=== PATIENT | male | born 1960 | race Caucasian/White ===

== ENCOUNTER 2017-05-20 02:33 | Inpatient (IN) | payer MEDICAID, OTHER ==
[~2017-05-20] VITALS: Ht 170.2 cm; Wt 72.6 kg
[2017-05-20] MEDS ORDERED: KETOROLAC 30MG/ML VIAL IV STA (03:48)
[2017-05-20] MEDS ORDERED: SODIUM CHLORIDE 0.9% 1,000 ML IV ONE ×2 (03:48→05:16)
[2017-05-20] MEDS ORDERED: ONDANSETRON HCL 4MG/2ML VIAL IV STA (03:48)
[2017-05-20] MEDS ORDERED: FENTANYL CITRATE/PF 50MCG/ML 2ML VIAL IV ONE (04:30)
[2017-05-20 04:36] LABS: BASOPHILS % 0.5 % (0.0-2.0); EOSINOPHILS % 0.8 % (0.0-5.0); HEMATOCRIT. 46.9 % (42.0-52.0); HEMOGLOBIN. 15.8 g/dL (14.0-18.0); LYMPHOCYTES % 11.5 % (20.0-50.0); MEAN CORPUSCULAR HEMOGLOBIN 30.3 pg (28.0-32.0); MEAN CORPUSCULAR VOLUME 89.7 fL (80.0-94.0); MEAN PLATELET VOLUME 8.9 fl (7.4-10.4); MONOCYTES % 5.5 % (2.0-8.0); NEUTROPHILS % 81.7 % (40.0-76.0); PLATELET 216 x1000/uL (130-400); RED BLOOD CELL COUNT 5.22 mill/uL (4.7-6.1); RED CELL DISTRIBUTION WIDTH 13.9 % (11.6-14.6)
[2017-05-20 04:43] LABS: INR 1.1; PROTHROMBIN TIME 11.5 sec (9.4-11.6)
[2017-05-20 04:53] LABS: CARBON DIOXIDE 23 mEq/L (21-32); CHLORIDE 108 mEq/L (98-107); ETHANOL BLOOD < 10 mg/dL; TROPONIN I < 0.02 ng/mL (0.00-0.04)
[2017-05-20] MEDS ORDERED: MORPHINE SULFATE 4 MG/ML CPJ (NOT FOR IM USE) IV SCH (06:16)
[2017-05-20] MEDS ORDERED: TAMSULOSIN HCL 0.4MG SR CAPSULE PO ONE (06:30)
[2017-05-20 06:46] LABS: CLARITY URINE CLEAR (CLEAR); COLOR URINE YELLOW (YELLOW); GLUCOSE URINE NEGATIVE (NEGATIVE); KETONES URINE 1+ (NEGATIVE); LEUKOCYTE ESTERASE URINE NEGATIVE (NEGATIVE); NITRITE URINE NEGATIVE (NEGATIVE); OCCULT BLOOD URINE 1+ (NEGATIVE); PROTEIN URINE NEGATIVE (NEGATIVE); SPECIFIC GRAVITY URINE 1.016 (1.005-1.030); UROBILINOGEN URINE 0.2 E.U./dL (0.2-1.0)
[2017-05-20 07:12] LABS: *AMPHETAMINES SCREEN URINE NEGATIVE (NEGATIVE); *BARBITURATES SCREEN URINE NEGATIVE (NEGATIVE); *BENZODIAZEPINES SCREEN URINE NEGATIVE (NEGATIVE); *COCAINE SCREEN URINE NEGATIVE (NEGATIVE); CANNABINOID URINE SCREEN NEGATIVE (NEGATIVE); METHADONE URINE SCREEN NEGATIVE (NEGATIVE); OPIATES URINE SCREEN PRESUMTIVE POSITIVE (NEGATIVE); PHENCYCLIDINE URINE SCREEN NEGATIVE (NEGATIVE)
[2017-05-20] MEDS ORDERED: LORAZEPAM 2MG/ML CPJ IV PRN (07:15)
[2017-05-20] MEDS ORDERED: MAGNESIUM/ALUMINUM HYDROXIDE/SIMETHICONE 30ML UDC PO PRN (07:15)
[2017-05-20] MEDS ORDERED: DIPHENHYDRAMINE 50MG/ML VIAL IV PRN (07:15)
[2017-05-20] MEDS ORDERED: POTASSIUM CHLORIDE 20MEQ TABLET SR PO SCH ×2 (07:15→20:45)
[2017-05-20] MEDS ORDERED: CLONIDINE 0.1MG TABLET PO PRN (07:15)
[2017-05-20] MEDS ORDERED: ONDANSETRON HCL 4MG/2ML VIAL IV PRN (07:15)
[2017-05-20] MEDS ORDERED: SODIUM CHLORIDE 0.9% 1,000 ML IV SCH (09:00)
[2017-05-20] MEDS: ACETAMINOPHEN 325MG TABLET PO PRN ×3 (12:00→22:55)
[2017-05-20] MEDS: MORPHINE SULFATE 4 MG/ML CPJ (NOT FOR IM USE) IV PRN ×2 (13:44→20:27)
[2017-05-20 18:21] VITALS: BP 119/61
[2017-05-20] MEDS ORDERED: HYDR-523 PO (18:28)
[2017-05-20] MEDS ORDERED: IBUP-2028 PO (18:29)
[2017-05-20 20:00] VITALS: BP 121/74
[2017-05-20] MEDS: SODIUM CHLORIDE 0.9% 1,000 ML IV SCH (21:00)
[2017-05-21] VITALS: BP 120/78
[2017-05-21] MEDS: SODIUM CHLORIDE 0.9% 1,000 ML IV SCH ×5 (03:17→23:41)
[2017-05-21] MEDS: MORPHINE SULFATE 4 MG/ML CPJ (NOT FOR IM USE) IV PRN ×3 (03:25→15:17)
[2017-05-21 04:33] VITALS: BP 146/78
[2017-05-21] MEDS: ACETAMINOPHEN 325MG TABLET PO PRN (04:34)
[2017-05-21 06:39] LABS: BASOPHILS % 0.4 % (0.0-2.0); EOSINOPHILS % 0.8 % (0.0-5.0); HEMOGLOBIN. 14.5 g/dL (14.0-18.0); LYMPHOCYTES % 12.3 % (20.0-50.0); MEAN PLATELET VOLUME 9.5 fl (7.4-10.4); MONOCYTES % 9.9 % (2.0-8.0); NEUTROPHILS % 76.6 % (40.0-76.0); PLATELET 183 x1000/uL (130-400); RED BLOOD CELL COUNT 4.67 mill/uL (4.7-6.1); RED CELL DISTRIBUTION WIDTH 13.9 % (11.6-14.6)
[2017-05-21 08:00] VITALS: BP 107/53
[2017-05-21 11:39] VITALS: BP 126/70
[2017-05-21 15:44] VITALS: BP 107/73
[2017-05-21] MEDS: OMEPRAZOLE 20MG CAPSULE EXTENDED RELEASE PO SCH (17:57)
[2017-05-21] MEDS: IBUPROFEN 600MG TABLET PO SCH ×2 (17:57→23:35)
[2017-05-21] MEDS: TAMSULOSIN HCL 0.4MG SR CAPSULE PO SCH (17:57)
[2017-05-21 20:00] VITALS: BP 114/70
[2017-05-22] VITALS: BP 96/54
[2017-05-22 04:00] VITALS: BP 112/67
[2017-05-22] MEDS: SODIUM CHLORIDE 0.9% 1,000 ML IV SCH ×2 (06:10→11:48)
[2017-05-22] MEDS: IBUPROFEN 600MG TABLET PO SCH ×3 (06:11→16:48)
[2017-05-22 08:00] VITALS: BP 114/73
[2017-05-22] MEDS: TAMSULOSIN HCL 0.4MG SR CAPSULE PO SCH (08:44)
[2017-05-22] MEDS: OMEPRAZOLE 20MG CAPSULE EXTENDED RELEASE PO SCH ×2 (08:44→16:48)
[2017-05-22 13:31] VITALS: BP 117/68
[2017-05-22 16:46] VITALS: BP 120/78
[2017-05-22 17:41] VITALS: BP 117/67
== END 2017-05-22 17:40 | disposition home or self-care (01) | DRG 465 ==
LOC: ER 02:45 → 8WST 06:29 → ENRESERV 15:28
PROVIDERS: ADMIT Internal Medicine; ATTEND Internal Medicine
DX: N13.2 Hydronephrosis with renal and ureteral calculous obstruction (principal); E87.2 Acidosis; E87.8 Other disorders of electrolyte and fluid balance, not elsewhere classified; E83.51 Hypocalcemia; E87.6 Hypokalemia; Z90.49 Acquired absence of other specified parts of digestive tract; Z83.3 Family history of diabetes mellitus
CPT/HCPCS: 36415; 71010; 74176; 76770; 80048; 80053; 80305; 81001; 83605; 83690; 83735; 84484; 85025; 85610; 93005; 96361; 96365; 96375; 96376; 99285; G0482; J1200; J1885; J2270; J2405; J3010; J7030